=== PATIENT | male | born 1985 | race Caucasian/White ===

== ENCOUNTER 2024-10-07 06:57 | Emergency (ER) | payer OTHER ==
[~2024-10-07] VITALS: Ht 170.2 cm; Wt 79.5 kg
[2024-10-07 07:12] VITALS: BP 120/78; PULSE 80; RESP 18; TEMP 98.1; O2SAT 99
[2024-10-07] MEDS: IBUPROFEN 600 MG TABLET PO ONE (07:54)
== END 2024-10-07 08:01 | disposition home or self-care (01) ==
LOC: EMS 06:57
DX: S93.401A Sprain of unspecified ligament of right ankle, initial encounter (principal); Z90.49 Acquired absence of other specified parts of digestive tract; X50.1XXA Overexertion from prolonged static or awkward postures, initial encounter; Y93.89 Activity, other specified; Y92.89 Other specified places as the place of occurrence of the external cause; Y99.8 Other external cause status
CPT/HCPCS: 29515; 99284; 73610-TC; 73620-TC; Z7502; Z7610